=== PATIENT | male | born 1975 | race Two or more races ===

== ENCOUNTER 2022-12-29 20:02 | Inpatient (IN) | payer BC ==
[~2022-12-29] VITALS: Ht 180.3 cm; Wt 120.0 kg
[2022-12-29 21:00] LABS: Basophils # (auto) 0 10 ^3/uL (0-0.2); Basophils % (auto) 0.7 % (0.0-2.0); Eosinophils # (auto) 0.1 10 ^3/uL (0-0.8); Eosinophils % (auto) 2.1 % (0.0-7.0); Hematocrit 43.5 % (41.0-53.0); Hemoglobin 14.9 g/dL (13.5-17.5); Lymphocytes % (auto) 33.7 % (10.0-50.0); Mean Corpuscular Hemoglobin 29.4 pg (28.0-32.0); Mean Corpuscular Hgb Conc. 34.2 g/dL (32.0-36.0); Mean Corpuscular Volume 85.9 fL (80.0-100.0); Monocytes # (auto) 0.5 10 ^3/uL (0-1.3); Neutrophils # (auto) 3.2 10 ^3/uL (1.6-8.6); Neutrophils % (auto) 54.5 % (37.0-80.0); Nucleated Red Blood Cells % 0.1 %; Red Blood Cells 5.06 10^6/uL (4.5-5.90); Red Cell Distribution Width 13.7 % (11.8-14.3); White Blood Cell 5.9 10^3/uL (4.4-10.8)
[2022-12-29 21:16] LABS: Calcium 8.5 mg/dL (8.5-10.1); Magnesium 2.2 mg/dL (1.6-2.6); Potassium 3.9 mmol/L (3.5-5.1)
[2022-12-29 21:18] LABS: INR 1.03 (0.9-1.15); Partial Thromboplastin Time 27.1 SEC (24.5-34.5)
[2022-12-29 21:20] LABS: BUN/Creatinine Ratio 10.1 (10.0-20.0); Bilirubin, Total 0.4 mg/dL (0.2-1.0)
[2022-12-29 23:40] VITALS: PULSE 65; RESP 20; O2SAT 97
[2022-12-30] MEDS ORDERED: ONDANSETRON HCL 4 MG/2 ML VIAL IV ONE
[2022-12-30] MEDS ORDERED: ACETAMINOPHEN 325 MG TAB PO ONE
[2022-12-30] MEDS ORDERED: SODIUM CHLORIDE 0.9% 1,000 ML IVB ONE
[2022-12-30] MEDS ORDERED: ASPirin 81 mg TAB PO ONE
[2022-12-30] MEDS ORDERED: MORPHINE SULFATE 4 MG/ML SYR/VIAL IV ONE
[2022-12-30] MEDS ORDERED: NITROGLYCERIN 0.2MG/HR TOPICAL PATCH TD ONE
[2022-12-30] MEDS ORDERED: IOHEXOL 350 MG/ML 100ML IJ ONE (00:28)
[2022-12-30] MEDS ORDERED: NITROGLYCERIN 0.4 MG SL TAB SL PRN (01:15)
[2022-12-30] MEDS ORDERED: HYDROcodone-ACET 5/325MG TAB PO PRN (01:15)
[2022-12-30] MEDS ORDERED: ACETAMINOPHEN 325 MG TAB PO PRN (01:15)
[2022-12-30] MEDS ORDERED: DOCUSATE SOD 100 MG CAP PO PRN (01:15)
[2022-12-30] MEDS ORDERED: ONDANSETRON HCL 4 MG/2 ML VIAL IV PRN (01:15)
[2022-12-30] MEDS ORDERED: MORPHINE SULFATE INJ 2 MG/ml SYRG IV PRN ×2 (01:15)
[2022-12-30] MEDS ORDERED: ATORVASTATIN 20 MG TAB PO ONE (02:00)
[2022-12-30] MEDS ORDERED: METOPROLOL TARTRATE 25 MG TAB PO ONE (02:00)
[2022-12-30] MEDS ORDERED: ENOXAPARIN SOD 100 MG/1 ML SYRINGE SC ONE (02:15)
[2022-12-30 06:15] LABS: Basophils # (auto) 0 10 ^3/uL (0-0.2); Basophils % (auto) 0.3 % (0.0-2.0); Eosinophils # (auto) 0 10 ^3/uL (0-0.8); Eosinophils % (auto) 0.6 % (0.0-7.0); Hematocrit 41.9 % (41.0-53.0); Hemoglobin 14.2 g/dL (13.5-17.5); Lymphocytes # (auto) 2.3 10 ^3/uL (0.4-5.4); Lymphocytes % (auto) 30.1 % (10.0-50.0); Mean Corpuscular Hemoglobin 29.3 pg (28.0-32.0); Mean Corpuscular Hgb Conc. 33.8 g/dL (32.0-36.0); Mean Corpuscular Volume 86.8 fL (80.0-100.0); Monocytes # (auto) 0.5 10 ^3/uL (0-1.3); Monocytes % (auto) 7.3 % (0.0-12.0); Neutrophils # (auto) 4.7 10 ^3/uL (1.6-8.6); Neutrophils % (auto) 61.7 % (37.0-80.0); Nucleated Red Blood Cells % 0.1 %; Red Blood Cells 4.83 10^6/uL (4.5-5.90); Red Cell Distribution Width 13.7 % (11.8-14.3); White Blood Cell 7.5 10^3/uL (4.4-10.8)
[2022-12-30] MEDS: SODIUM CHLOR 0.9% PF (SALINE LOCK) 10ML VIAL/SYR IV SCH ×3 (06:15→21:35)
[2022-12-30 06:40] LABS: Potassium 3.9 mmol/L (3.5-5.1)
[2022-12-30 07:01] LABS: Albumin 3.8 g/dL (3.4-5.0); BUN/Creatinine Ratio 10.6 (10.0-20.0); Bilirubin, Total 0.5 mg/dL (0.2-1.0); Calcium 8.5 mg/dL (8.5-10.1)
[2022-12-30 07:53] VITALS: PULSE 77; RESP 19; O2SAT 97
[2022-12-30 08:23] LABS: Alcohol, Urine < 3.0 mg/dL (0-10); Amphetamine Screen, Urine NEGATIVE (NEGATIVE); Barbiturate Scree,Urine NEGATIVE (NEGATIVE); Benzodiazephine Screen, Urine NEGATIVE (NEGATIVE); Cannabinoid Screen, Urine NEGATIVE (NEGATIVE); Cocaine Screen, Urine NEGATIVE (NEGATIVE); Opiate Scree,Urine NEGATIVE (NEGATIVE); Phencyclidine Screen, Urine NEGATIVE (NEGATIVE)
[2022-12-30 08:39] LABS: Cholesterol 160 mg/dL (< 200)
[2022-12-30 08:42] LABS: HDL Cholesterol 39 mg/dL (40-59); LDL Cholesterol 100 mg/dL (< 100); Triglycerides 122 mg/dL (< 150)
[2022-12-30 08:48] LABS: Urine Bacteria NONE SEEN /hpf (None Seen); Urine Blood Negative /uL (Negative); Urine Mucus FEW (None Seen); Urine WBC 1 /hpf (0 - 3)
[2022-12-30 08:50] LABS: Urine Specific Gravity > 1.035 (1.001-1.035)
[2022-12-30] MEDS: ASPirin 81 mg TAB PO SCH (09:12)
[2022-12-30 19:25] VITALS: PULSE 73; RESP 16; O2SAT 95
[2022-12-30 21:25] VITALS: BP 155/87; PULSE 77; RESP 19; TEMP 98.7; O2SAT 95
[2022-12-30] MEDS: METOPROLOL TARTRATE 50 MG TAB PO SCH (21:36)
[2022-12-30] MEDS: ATORVASTATIN 20 MG TAB PO SCH (21:36)
[2022-12-30 22:00] VITALS: BP 155/87; PULSE 77; RESP 19; TEMP 98.7; O2SAT 95
[2022-12-31 05:00] VITALS: BP 142/86; PULSE 54; RESP 19; TEMP 97.5; O2SAT 96
[2022-12-31 05:40] LABS: Basophils # (auto) 0 10 ^3/uL (0-0.2); Basophils % (auto) 0.5 % (0.0-2.0); Eosinophils # (auto) 0.1 10 ^3/uL (0-0.8); Eosinophils % (auto) 1.4 % (0.0-7.0); Hemoglobin 14.1 g/dL (13.5-17.5); Lymphocytes # (auto) 2.1 10 ^3/uL (0.4-5.4); Lymphocytes % (auto) 26.5 % (10.0-50.0); Mean Corpuscular Hemoglobin 29.4 pg (28.0-32.0); Mean Corpuscular Hgb Conc. 33.7 g/dL (32.0-36.0); Mean Corpuscular Volume 87.2 fL (80.0-100.0); Monocytes # (auto) 0.7 10 ^3/uL (0-1.3); Neutrophils # (auto) 5.1 10 ^3/uL (1.6-8.6); Neutrophils % (auto) 62.6 % (37.0-80.0); Nucleated Red Blood Cells % 0.1 %; Red Blood Cells 4.81 10^6/uL (4.5-5.90); Red Cell Distribution Width 13.7 % (11.8-14.3); White Blood Cell 8.1 10^3/uL (4.4-10.8)
[2022-12-31 05:58] LABS: Calcium 8.9 mg/dL (8.5-10.1); Potassium 4.4 mmol/L (3.5-5.1)
[2022-12-31 06:03] LABS: Albumin 3.8 g/dL (3.4-5.0); BUN/Creatinine Ratio 12.5 (10.0-20.0); Bilirubin, Total 0.6 mg/dL (0.2-1.0); Total Protein 6.7 g/dL (6.4-8.2)
[2022-12-31] MEDS: SODIUM CHLOR 0.9% PF (SALINE LOCK) 10ML VIAL/SYR IV SCH ×3 (06:08→22:05)
[2022-12-31 08:00] VITALS: PULSE 51; PULSE 99; RESP 14; O2SAT 98
[2022-12-31 08:30] VITALS: BP 180/95; PULSE 77; RESP 20; TEMP 98.5; O2SAT 96
[2022-12-31] MEDS: ASPirin 81 mg TAB PO SCH (09:06)
[2022-12-31] MEDS: METOPROLOL TARTRATE 50 MG TAB PO SCH ×2 (09:07→22:05)
[2022-12-31 12:30] VITALS: BP 135/85; PULSE 75; RESP 22; TEMP 98.6; O2SAT 94
[2022-12-31] MEDS: ENOXAPARIN SOD 120 MG/0.8 ML SYRINGE SC SCH (14:24)
[2022-12-31 17:00] VITALS: BP 129/78; PULSE 73; RESP 20; TEMP 98.6; O2SAT 95
[2022-12-31 20:00] VITALS: PULSE 67; O2SAT 94
[2022-12-31] MEDS: ATORVASTATIN 20 MG TAB PO SCH (22:01)
[2023-01-01] VITALS (10 sets, daily range): BP systolic 125–154; BP diastolic 68–85; PULSE 56–99; RESP 15–20; TEMP 98.3–98.8; O2SAT 94–99
[2023-01-01] MEDS: ENOXAPARIN SOD 120 MG/0.8 ML SYRINGE SC SCH ×2 (01:42→07:42)
[2023-01-01] MEDS: SODIUM CHLOR 0.9% PF (SALINE LOCK) 10ML VIAL/SYR IV SCH (06:00)
[2023-01-01] MEDS: METOPROLOL TARTRATE 50 MG TAB PO SCH ×2 (09:46→21:36)
[2023-01-01] MEDS: ASPirin 81 mg TAB PO SCH (09:46)
[2023-01-01] MEDS ORDERED: SODIUM CHL 0.9% 50 ML ONE ×2 (16:38→17:31)
[2023-01-01] MEDS ORDERED: IODIXANOL 320MG/ML 100ML BTL IV ONE (16:38)
[2023-01-01] MEDS ORDERED: fentaNYL CITRATE 100 MCG/2 ML VL ONE (16:38)
[2023-01-01] MEDS ORDERED: MIDAZOLAM HCL 2MG/2ML 2ml VIAL (1mg/ml) ONE (16:38)
[2023-01-01] MEDS ORDERED: ANGIOMAX 250 MG VIAL IV ONE ×2 (16:38→17:31)
[2023-01-01] MEDS ORDERED: LIDOCAINE 2%HCL (LOCAL ANESTH.) INJ 20ML MDV ONE (16:38)
[2023-01-01] MEDS ORDERED: HEPARIN SODIUM (PORCINE) 5000 UNITS/ML 1ML VIAL ONE (16:42)
[2023-01-01] MEDS ORDERED: VERAPAMIL 2.5MG/ML INJ 2ML VIAL IV ONE (16:42)
[2023-01-01] MEDS ORDERED: niCARdipine 25 MG/10 ML VIAL IV ONE (17:04)
[2023-01-01] MEDS ORDERED: CLOPIDOGREL 300 MG TAB ONE (17:26)
[2023-01-01] MEDS ORDERED: ASPirin 325 MG TAB ONE (17:27)
[2023-01-01] MEDS ORDERED: ATORVASTATIN 20 MG TAB PO SCH (22:00)
[2023-01-02 05:02] VITALS: BP 124/83; PULSE 63; RESP 22; TEMP 98.2; O2SAT 97
[2023-01-02 09:00] VITALS: BP 136/82; PULSE 51; RESP 18; TEMP 98; O2SAT 96
[2023-01-02] MEDS: ASPirin 81 mg TAB PO SCH (09:44)
[2023-01-02] MEDS: METOPROLOL TARTRATE 50 MG TAB PO SCH (09:45)
[2023-01-02] MEDS: SODIUM CHLOR 0.9% PF (SALINE LOCK) 10ML VIAL/SYR IV SCH (09:46)
[2023-01-02] MEDS ORDERED: CLOPIDOGREL BISULFATE 75 MG TAB PO SCH (10:00)
[2023-01-02] MEDS ORDERED: ASPI-325 PO (10:43)
[2023-01-02] MEDS ORDERED: ATOR80TA PO (10:43)
[2023-01-02] MEDS ORDERED: MET50T PO (10:43)
[2023-01-02] MEDS ORDERED: CLOP75TA70 PO (10:43)
[2023-01-02 13:00] VITALS: BP 111/75; PULSE 60; RESP 18; TEMP 98; O2SAT 95
[2023-01-02 13:43] VITALS: BP 136/82; PULSE 51; TEMP 36.7
[2023-01-02 17:00] VITALS: BP 132/91; PULSE 71; RESP 19; TEMP 98; O2SAT 96
== END 2023-01-02 18:30 | disposition home or self-care (01) | DRG 270 ==
LOC: ER 20:02 → EDBD 20:02 → TELE 12-30 01:23 → TELE-EAST 12-30 21:25
PROVIDERS: ADMIT Internal Medicine; ATTEND Internal Medicine
PROC: 027034Z Dilation of Coronary Artery, One Artery with Drug-eluting Intraluminal Device, Percutaneous Approach (ICD-10-PCS; principal; 2023-01-01)
PROC: X2CY3T7 Extirpation of Matter from Great Vessel using Computer-aided Mechanical Aspiration, Percutaneous Approach, New Technology Group 7 (ICD-10-PCS; 2023-01-01)
PROC: B211YZZ Fluoroscopy of Multiple Coronary Arteries using Other Contrast (ICD-10-PCS; 2023-01-01)
PROC: B241ZZ3 Ultrasonography of Multiple Coronary Arteries, Intravascular (ICD-10-PCS; 2023-01-01)
DX: I25.110 Atherosclerotic heart disease of native coronary artery with unstable angina pectoris (principal); I21.4 Non-ST elevation (NSTEMI) myocardial infarction; F17.210 Nicotine dependence, cigarettes, uncomplicated; E66.9 Obesity, unspecified; E78.5 Hyperlipidemia, unspecified; I11.9 Hypertensive heart disease without heart failure; Z79.02 Long term (current) use of antithrombotics/antiplatelets; Z82.49 Family history of ischemic heart disease and other diseases of the circulatory system; Z68.36 Body mass index [BMI] 36.0-36.9, adult; Z82.3 Family history of stroke; Z71.6 Tobacco abuse counseling
CPT/HCPCS: 36415; 71045; 71275; 78452; 80053; 80061; 80307; 80320; 81001; 83036; 83605; 83735; 83880; 84443; 84484; 85025; 85379; 85610; 85730; 92929; 92941; 92973; 92978; 93005; 93017; 93306; 93454; 99152; 99153; G0378; J2250; Q9967

== ENCOUNTER 2023-02-04 17:42 | Emergency (ER) | payer BC ==
[~2023-02-04] VITALS: Ht 180.3 cm; Wt 115.9 kg
[~2023-02-04 17:42] MED LIST: ASPI-325 PO; ATOR80TA PO; CLOP75TA70 PO; MET50T PO
[2023-02-04] MEDS ORDERED: SODIUM CHLORIDE 0.9% 1,000 ML IV ONE ×2 (18:15→20:30)
[2023-02-04 18:26] LABS: Basophils # (auto) 0 10 ^3/uL (0-0.2); Basophils % (auto) 0.4 % (0.0-2.0); Eosinophils # (auto) 0 10 ^3/uL (0-0.8); Eosinophils % (auto) 0.3 % (0.0-7.0); Hematocrit 47.4 % (41.0-53.0); Lymphocytes # (auto) 1.5 10 ^3/uL (0.4-5.4); Lymphocytes % (auto) 21.7 % (10.0-50.0); Mean Corpuscular Hemoglobin 28.9 pg (28.0-32.0); Mean Corpuscular Hgb Conc. 33.7 g/dL (32.0-36.0); Mean Corpuscular Volume 85.6 fL (80.0-100.0); Monocytes # (auto) 0.5 10 ^3/uL (0-1.3); Monocytes % (auto) 7.9 % (0.0-12.0); Neutrophils # (auto) 4.7 10 ^3/uL (1.6-8.6); Neutrophils % (auto) 69.7 % (37.0-80.0); Red Blood Cells 5.53 10^6/uL (4.5-5.90); Red Cell Distribution Width 13.1 % (11.8-14.3); White Blood Cell 6.7 10^3/uL (4.4-10.8)
[2023-02-04 18:47] LABS: Alanine Aminotransferase 45 U/L (7-40); Alkaline Phosphatase 133 U/L (46-116); Anion Gap 7.4 (5-15); Aspartate Aminotransferase 15 U/L (13-40); BUN/Creatinine Ratio 7.9 (10.0-20.0); Blood Urea Nitrogen 9 mg/dL (9-23); Calcium 9.8 mg/dL (8.7-10.4); Carbon Dioxide 24.6 mmol/L (20-30); Chloride 107 mmol/L (98-107); Glucose 116 mg/dL (74-106); Magnesium 1.7 mg/dL (1.6-2.6); Potassium 4.1 mmol/L (3.5-5.1); Sodium 139 mmol/L (136-145)
[2023-02-04 18:48] LABS: Bilirubin, Total 0.5 mg/dL (0.2-1.0); Total Protein 7.7 g/dL (5.7-8.2)
[2023-02-04 18:58] LABS: INR 1.12 (0.9-1.15); Partial Thromboplastin Time 27.5 SEC (24.5-34.5); Prothrombin Time 11.7 sec (9.3-11.8)
[2023-02-04] MEDS ORDERED: LABETALOL HCL 5 MG/ML 4ML SYRINGE IV ONE ×3 (21:00→23:00)
[2023-02-04 21:23] LABS: Amphetamine Screen, Urine Neg (NEGATIVE); Barbiturate Scree,Urine Neg (NEGATIVE)
[2023-02-04 21:24] LABS: Benzodiazephine Screen, Urine Neg (NEGATIVE); Cannabinoid Screen, Urine Neg (NEGATIVE); Cocaine Screen, Urine Neg (NEGATIVE); Opiate Scree,Urine Neg (NEGATIVE); Phencyclidine Screen, Urine Neg (NEGATIVE); Urine Bacteria NONE SEEN /hpf (None Seen); Urine Blood Negative /uL (Negative); Urine Clarity Clear (Clear); Urine Color Colorless (Yellow); Urine Protein, UAD Negative (Negative); Urine Specific Gravity 1.016 (1.001-1.035); Urine Urobilinogen Normal (Negative); Urine WBC 1 /hpf (0 - 3); Urine pH 6.5 (5.0-8.0)
[2023-02-04 22:50] VITALS: BP 118/82; PULSE 91; RESP 18; TEMP 98.7; O2SAT 97
== END 2023-02-04 23:31 | disposition home or self-care (01) ==
LOC: ER 17:42
DX: R00.0 Tachycardia, unspecified (principal); R00.2 Palpitations; I10 Essential (primary) hypertension; F41.0 Panic disorder [episodic paroxysmal anxiety]; I25.10 Atherosclerotic heart disease of native coronary artery without angina pectoris; E78.5 Hyperlipidemia, unspecified; F17.210 Nicotine dependence, cigarettes, uncomplicated; Z98.890 Other specified postprocedural states; Z79.899 Other long term (current) drug therapy; Z79.82 Long term (current) use of aspirin
CPT/HCPCS: 36415; 71045; 80053; 80307; 81001; 83735; 83880; 84484; 85025; 85379; 85610; 85730; 93005; 96361; 96374; 96376; 99285; J3490; J7030; 96375